=== PATIENT | female | born 1985 | race American Indian/Alaskan Native ===

== ENCOUNTER 2017-01-12 09:44 | Inpatient (IN) | payer MEDICAID ==
--- NOTE | 2017-01-09 13:18 | History and Physical Report ---
History of Present Illness Date of examination: 01/07/17 Date of admission: 01/12/17 Chief complaint: here for c/s History of present illness: Pt presents for primary C/s due to having abdominal cerclage in place. Cerclage will not be removed during the section. All risk, benefits, and alternatives were d/w pt and all questions were addressed and answered. Consents were signed and placed on the chart. EDC Calculations LMP: 05/13/2015 EDC Confirmation: 05/13/2015 Gestational Age: 8 1/7 weeks Past History : 6 # 1 Delivery date: 10/17/2005 Weeks Gestation: 19 Delivery type: Delivery location: [place] Sex: Male Comments: PPROM advanced dilatation # 2 Delivery date: 01/25/2007 Weeks Gestation: 22 Delivery type: Anesthesia type: epidural Delivery location: [place] Sex: Male Comments: cerclage in place PPROM # 3 Delivery date: 05/2010 Weeks Gestation: 8 Delivery type: ectopic Comments: MTX treated right ectopic # 4 Delivery date: 02/20/2011 Weeks Gestation: 26 Delivery type: Delivery location: [facility] Comments: Cerclage placed/progesterone supp IUFD induction done # 5 Delivery date: 10/2012 Weeks Gestation: 19 Delivery location: [facility] Comments: Cerclage placed PPROM unsure possible D&E Past Medical History: Goiter Past Surgical History: umbilical hernia Family History Summary: Daughter () - Has No Family History of Ovarvian Cancer - Please disregard relationships chosen - Entered On: 10/02/2014 Daughter (misty.) - Has No Family History of Diabetes, Hypertension, or Coronary Artery Disease - Please disregard relationships chosen - Entered On: 10/02/2014 Daughter (biol.) - Has No Family History of Colon Cancer - Please disregard relationships chosen - Entered On: 10/02/2014 Daughter (biol.) - Has Family History of Thyroid Disease - Please disregard relationships chosen - Entered On: 10/02/2014 Daughter (biol.) - Has Family History Breast Cancer - Please disregard relationships chosen - Entered On: 10/02/2014 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 of genital herpes: no Partner hx. of genital herpes: no Genetic History Congenital Heart Defect: Mom: no Dad: no Jet Disease: Mom: no Dad: no Thalassemia Mom: no Dad: no Neural Tube Defect Mom: no Dad: no Down's Syndrome Mom: no Dad: no Leo-Sachs Mom: no Dad: no Sickle Cell Disease/Trait Mom: no Dad: no Hemophilia Mom: no Dad: no Muscular Dystrophy Mom: no Dad: no Cystic Fibrosis Mom: no Dad: no Rawlings Chorea Mom: no Dad: no Mental Retardation Mom: no Dad: no Fragile X Mom: no Dad: no Other Genetic/Chromosomal Disorder Mom: no Dad: no Child w/other defect Mom: no Dad: no Enviromental Exposures Xray Exposure: no Medication, drug, or alcohol use since LMP: no Chemical/Other Exposure: no Exposure to Cat Liter: no Active Medications (reviewed today): VITAMINS () Current Allergies (reviewed today): No known allergies Past History Past Medical History: no pertinent history Past Surgical History: other (cervical cerclage times 2; abdominal cerclage times one) 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: denies: abnormal PAP smear Social history: no significant social history, single - Obstetrical History Expected Date of Delivery: 01/18/17 Actual Gestation: 38 Week(s) 5 Day(s) : 6 Para: 0 Number of Living Children: 0 Medications and Allergies Allergies Allergy/AdvReac Type Severity Reaction Status Date / Time No Known Allergies Allergy Unverified 11/30/14 11:40 Home Medications Medication Instructions Recorded Confirmed Last Taken Type Pnv95/Ferrous Fumarate/FA 1 each PO QDAY 11/30/14 11/30/14 11/29/14 History [ Vitamins] Ferrous Gluconate [Fergon] 325 mg PO TID #90 tablet 12/01/14 Unknown Rx Methylergonovine [Methergine] 0.2 mg PO Q8HR #3 tablet 12/01/14 Unknown Rx Review of Systems All systems: negative - Physical Exam Breasts: Positive: deferred Cardiovascular: Normal S1, Normal S2 Lungs: Positive: Clear to auscultation, Normal air movement Abdomen: Positive: normal appearance, soft. Negative: distention, tenderness, guarding Genitourinary (Female): Positive: other (deferrred) Extremities: Positive: normal. Negative: tenderness, edema Deep Tendon Reflex Grade: Normal +2 - Obstetrical FHR: auscultation normal Results All other labs normal. Assessment and Plan - Patient Problems (1) H/O incompetent cervix, currently Status: Acute Plan to address problem: -adominal cerclage in place -proceed with primary c/s -consents signed and placed on the chart. (2) with poor reproductive history in third trimester Status: Acute
[~2017-01-12 09:44] MED LIST: ANCEF/STERILE WATER 2 GM/20 ML 2 GM/20 ML SYRINGE IV NR; BICITRA PO SCH; LACTATED RINGERS 1,000 ML IV SCH; PEPCID IV SCH; REGLAN IV SCH
--- NOTE | 2017-01-12 10:46 | Anesthesia Day of Surgery ---
Anesthesia Day of Surgery - Day of Surgery Patient Examined: Yes Patient H&P Reviewed: Yes Patient is NPO: Yes
--- NOTE | 2017-01-12 10:46 | Anesthesia Consultation ---
Anesthesia Consult and Med Hx Date of service: 01/12/17 - Airway Anesthetic Teeth Evaluation: Good ROM Head & Neck: Adequate Mental/Hyoid Distance: Adequate Mallampati Class: Class II Intubation Access Assessment: Probably Good - Pre-Operative Health Status ASA Pre-Surgery Classification: ASA2 Proposed Anesthetic Plan: Epidural, Spinal - Pulmonary Hx Asthma: No COPD: No Hx Pneumonia: No - Cardiovascular System Hx Hypertension: No - Central Nervous System Hx Seizures: No Hx Psychiatric Problems: No - Endocrine Hx Renal Disease: No Hx End Stage Renal Disease: No Hx Hypothyroidism: No Hx Hyperthyroidism: No - Hematic Hx Anemia: No Hx Sickle Cell Disease: No - Other Systems Hx Alcohol Use: No - Additional Comments Anesthesia Medical History Comments: cerclage is in place
[2017-01-12 10:56] LABS: Basophils % (Auto) 0.3 % (0.0-1.8); Eosinophils % (Auto) 1.4 % (0.0-4.3); Hematocrit 39.2 % (30.3-42.9); Hemoglobin 12.4 gm/dl (10.1-14.3); Mean Corpuscular HGB Conc 32 % (30-34); Mean Corpuscular Hemoglobin 27 pg (28-32); Mean Corpuscular Volume 86 fl (79-97); Platelet Count 253 K/mm3 (140-440); Red Blood Count 4.56 M/mm3 (3.65-5.03); Red Cell Distribution Width 15.4 % (13.2-15.2); White Blood Count 7.3 K/mm3 (4.5-11.0)
[2017-01-12] MEDS ORDERED: NARCAN 0.4 MG/1 ML IV PRN ×2 (11:00→13:18)
[2017-01-12] MEDS ORDERED: BENADRYL IV PRN ×2 (11:00→11:31)
[2017-01-12] MEDS ORDERED: DILAUDID IV PRN (11:00)
[2017-01-12] MEDS ORDERED: TORADOL IV PRN (11:00)
[2017-01-12] MEDS ORDERED: SODIUM CHLORIDE FLUSH SYRINGE 10 ML IV NR (11:00)
[2017-01-12] MEDS ORDERED: PHENERGAN PO PRN (11:15)
[2017-01-12] MEDS ORDERED: ZOFRAN IV PRN (11:15)
[2017-01-12] MEDS ORDERED: PHENERGAN PR PRN (11:15)
[2017-01-12] MEDS ORDERED: MORPHINE IV PRN ×2 (11:31)
[2017-01-12] MEDS ORDERED: MORPHINE ONE (11:43)
[2017-01-12] MEDS ORDERED: ZOFRAN ONE (12:48)
[2017-01-12] MEDS ORDERED: NEO SYNEPHRINE/NS Syringe(OR USE) IV ONE (13:00)
[2017-01-12 13:02] LABS: ISTAT Base Excess -3; ISTAT HCO3 24.2; ISTAT PCO2 57.3 (35-45); ISTAT PH 7.234 (7.35-7.45); ISTAT PO2 13 (80-105); ISTAT SO2 11; ISTAT TCO2 26
[2017-01-12 13:02] LABS: ISTAT Base Excess -3; ISTAT HCO3 24.3; ISTAT PO2 17 (80-105); ISTAT SO2 19; ISTAT TCO2 26
--- NOTE | 2017-01-12 13:06 | Operative Report ---
Operative Report Operative Report: Date of procedure: 01/12/2017 Pre-operative diagnosis: 39 weeks gestation Abdominal cerclage Post-operative diagnosis: Same Procedure name(s): Primary low vertical section Surgeon: Dr. Guzman Evaluation Advisor: Ms. Rosey Rod Anesthesia: Epidural EBL: 800 mL Urine output: 100 mL of clear urine at the end of the procedure Fluids: 1500 mL Findings: Liveborn female weight 7 lbs. 12 oz. Apgars of 4 and 8 at one and 5 minutes. Abdominal cerclage stitch noted and intact minimal bleeding noted around the serosa which was repaired with 3-0 Vicryl. Less than 1 cm fundal fibroid anterior Normal fallopian tubes and ovaries bilaterally Indications: Patient presents for primary section due to having placement of abdominal cerclage and wanting to maintain cerclage in place. All risks benefits and alternatives were discussed with the patient. Consents were signed and placed on the chart. Procedure: Patient was taking to the operating room. Patient was then prepped and draped in sterile fashion after anesthesia was found to be adequate. A low transverse skin incision was made with the scalpel and carried down to the underlying layer of fascia with the Bovie. The fascia was then incised in the midline and this incision was extended bilaterally with the Bovie. The superior aspect of the fascia was grasped with Balaji clamps tented upward and dissected off of the anterior rectus muscles with the scalpel. In similar fashion the inferior aspect of the fascia was grasped with Balaji clamps tented upward and dissected off of the anterior rectus muscles. The rectus muscles were then bluntly divided in the midline. The peritoneum was identified and entered into sharply. A low vertical uterine incision was made extending superiorly with the scalpel and blunt dissection. Artificial rupture of membranes was performed yielding clear amniotic fluid. The infant's head was then delivered atraumatically. The anterior shoulder and rest of delivered without difficulty. Nuchal cord and shoulder cord were noted and easily reduced. The umbilical cord was clamped x2. The cord was cut. The infant was then placed in sterile bassinet. The cord blood was collected. A cord gas was also collected. The placenta was manually extracted in its entirety. The uterus was exteriorized and cleared of all clots and debris. The uterine incision was closed using 0 Vicryl in a running locking fashion. Several [id number] sutures were used along the uterine incision to secure excellent hemostasis. Bleeding was noted of the serosa covering the abdominal cerclage stitch. This area was suture ligated with 0 and 3-0 Vicryl. Excellent hemostasis was noted. The posterior cul-de-sac was copiously irrigated. The uterus was returned to the abdomen. The gutters were also irrigated. The anterior rectus muscles were reapproximated using 3-0 Vicryl. The anterior rectus fascia was reapproximated using 0 Vicryl in a running fashion. The subcuticular fat was reapproximated using 2-0 Vicryl in a running fashion. The skin was reapproximated with 4-0 Monocryl with a substitute stitch. The patient tolerated the procedure well. Sponge lap and needle counts were all correct x3. Patient was taken to the recovery room awake and in stable condition.
[2017-01-12] MEDS ORDERED: TUCKS PAD TP PRN (13:18)
[2017-01-12] MEDS ORDERED: LANSINOH TP PRN (13:18)
--- NOTE | 2017-01-12 15:02 | Post Anesthesia Evaluation ---
- Post Anesthesia Evaluation Patient Participated: Yes Airway Patent: Yes Stable Respiratory Function: Yes Nausea/Vomiting: No Temp > 96.8F: Yes Pain Manageable: Yes Adequeate Hydration: Yes Anesthesia Complications: No Block Receding Appropriately: Yes Patient on Ventilator: No
[2017-01-12] MEDS ORDERED: CYTOTEC ONE (15:13)
[2017-01-12] MEDS ORDERED: CYTOTEC PR ONE (16:08)
[2017-01-12] MEDS ORDERED: PITOCin/NS 20 UNIT/1000ML DRIP 20,000 MILLIUNITS/1,000 ML BAG IV ONE (19:17)
[2017-01-12] MEDS: ANCEF/NS 1 GM/50 ML 1 GM/50 ML BAG IV SCH (19:26)
[2017-01-12] MEDS: PITOCin/NS 20 UNIT/1000ML DRIP 20 UNITS/1,000 ML BAG IV SCH (19:26)
[2017-01-12] MEDS: METHERGINE PO SCH (20:04)
--- NOTE | 2017-01-12 20:19 | Progress Note ---
Assessment and Plan - Patient Problems (1) bleeding Onset Date: ~01/12/17 Current Visit: Yes Status: Acute Qualifiers: hemorrhage type: unspecified Qualified Code(s): O72.1 - Other immediate hemorrhage Plan to address problem: Went to PP unit to see pt after speaking with RN Had her chg the pad and I waited approx 30 min to see what her bleeding was doing. With massage FF bleeding is moderate. Pad changed there is a small trickle noted. notified of my findins. PO Methergine started. Will reassess on her arrival. Subjective - Subjective Date of service: 01/12/17 (called by RN to evaluate PP bleeding) Patient reports: pain well controlled [place]: doing well Objective - Vital Signs Latest vital signs: Vital Signs Temp Pulse Resp BP Pulse Ox 01/12/17 16:15 98.2 F 102 H 18 149/72 01/12/17 15:00 95 H 18 143/71 01/12/17 14:35 98 F 81 18 129/69 01/12/17 13:57 97.6 F 01/12/17 13:51 84 12 124/71 100 01/12/17 13:40 97.6 F 81 10 L 120/73 98 01/12/17 13:30 82 16 128/71 100 01/12/17 13:20 87 16 129/67 98 01/12/17 13:10 86 16 126/66 98 01/12/17 13:00 91 H 15 124/60 97 01/12/17 12:56 97.9 F 01/12/17 12:55 99 H 97 01/12/17 11:30 91 H 98 01/12/17 11:25 94 H 98 01/12/17 11:20 93 H 99 01/12/17 11:15 93 H 99 01/12/17 11:10 96 H 99 01/12/17 11:05 97 H 98 01/12/17 11:00 88 99 01/12/17 10:57 98.8 F 80 18 127/74 01/12/17 10:54 102 H 98 01/12/17 10:49 94 H 127/74 98 01/12/17 10:44 102 H 96 01/12/17 10:39 100 H 98 01/12/17 10:34 105 H 90 01/12/17 10:33 107 H 98 Intake and Output 01/12/17 01/12/17 01/12/17 06:59 14:59 22:59 Intake Total 1900 360 Output Total 200 600 Balance 1700 -240 Intake: IV 1900 Oral 360 Output: Urine 200 600 Indwelling Catheter 600 Other: Total, Intake Amount 360 Total, Output Amount 600 Weight 222 lb Patient Weight 01/13/17 06:59 Weight 222 lb - Exam Breasts: Present: normal Cardiovascular: Present: Regular rate Lungs: Present: Normal air movement Abdomen: Present: normal appearance, soft Uterus: Present: normal, fundal height below umbilicus (FF with massage ), other (bleeding is a steady trickle; 2nd bag of pitocin hung; made aware of concerns) Extremities: Present: edema Incision: Present: dry, intact, dressed - Labs Labs: Abnormal lab results 01/12/17 01/12/17 01/12/17 Range/Units 10:43 12:53 12:57 MCH 27 L (28-32) pg RDW 15.4 H (13.2-15.2) % [place] % (Auto) 10.5 H (0.0-7.3) % Seg Neutrophils % 70.3 H (40.0-70.0) % POC ABG pH 7.270 L 7.234 L (7.35-7.45) POC ABG pCO2 53.0 H 57.3 H (35-45) POC ABG pO2 17 L 13 L (80-105)
--- NOTE | 2017-01-12 21:01 | Event Note ---
Date: 01/12/17 (pt re-eval with ) Uterus is soft FF below the umbilicus slightly to the right. evacuated several small clots. Bleeding is much improved on this pad that was placed @ 1999. Will continue POC. RN made aware of our assessment. Please see 's note.
--- NOTE | 2017-01-12 21:10 | Progress Note ---
Assessment and Plan - Patient Problems (1) H/O incompetent cervix, currently Current Visit: Yes Status: Acute (2) with poor reproductive history in third trimester Current Visit: Yes Status: Acute (3) bleeding Onset Date: ~01/12/17 Current Visit: Yes Status: Acute Qualifiers: hemorrhage type: unspecified Qualified Code(s): O72.1 - Other immediate hemorrhage Plan to address problem: -monitor closely will do vitals q 2 hours -pt is stable and bleeding is what is to be expected post op -all questions were addressed and answered -RN made aware of plan of care -cont methergine po at this time. Subjective - Subjective Date of service: 01/12/17 Principal diagnosis: POD #0 s/p low vertical c/s now with vaginal bleeding Interval history: Called by program manager rn due to pt having what was noted to be moderate vaginal bleeding. Pt has gotten cytotec times one, methergine times one and pitocin 20 units hanging now which will be a total of 40 units. When I spoke with pt current nurse she stated the bleeding was normal at this time and seemed improved from what that was given. I spoke with Ms. Rod who was also at bedside and states bleeding is improved and current pad has been on for the last hour and has small amount of blood present. Vaginal exam did produce two clots but no constant bleeding or tricking of blood noted on exam at this time. With movement to change padding, again no active bleeding noted one exam. Vitals are stable and UOP is more than adequate at this time. Pt pain is well controlled.No headaches, blurry vision, on palpitations at this time. Patient reports: pain well controlled : doing well Objective - Vital Signs Latest vital signs: Vital Signs Temp Pulse Resp BP Pulse Ox 01/12/17 20:30 98.6 F 81 16 120/70 01/12/17 16:15 98.2 F 102 H 18 149/72 01/12/17 15:00 95 H 18 143/71 01/12/17 14:35 98 F 81 18 129/69 01/12/17 13:57 97.6 F 01/12/17 13:51 84 12 124/71 100 01/12/17 13:40 97.6 F 81 10 L 120/73 98 01/12/17 13:30 82 16 128/71 100 01/12/17 13:20 87 16 129/67 98 01/12/17 13:10 86 16 126/66 98 01/12/17 13:00 91 H 15 124/60 97 01/12/17 12:56 97.9 F 01/12/17 12:55 99 H 97 01/12/17 11:30 91 H 98 01/12/17 11:25 94 H 98 01/12/17 11:20 93 H 99 01/12/17 11:15 93 H 99 01/12/17 11:10 96 H 99 01/12/17 11:05 97 H 98 01/12/17 11:00 88 99 01/12/17 10:57 98.8 F 80 18 127/74 01/12/17 10:54 102 H 98 01/12/17 10:49 94 H 127/74 98 01/12/17 10:44 102 H 96 01/12/17 10:39 100 H 98 01/12/17 10:34 105 H 90 01/12/17 10:33 107 H 98 Intake and Output 01/12/17 01/12/17 01/12/17 06:59 14:59 22:59 Intake Total 1900 910 Output Total 200 600 Balance 1700 310 Intake: IV 1900 Oral 610 Intake, Free Water 300 Output: Urine 200 600 Indwelling Catheter 600 Other: Total, Intake Amount 250 Total, Output Amount 600 Weight 100.698 kg Patient Weight 01/13/17 06:59 Weight 100.698 kg - Exam Abdomen: Present: normal appearance, soft. Absent: distention, tenderness, guarding Uterus: Present: normal, firm, fundal height below umbilicus. Absent: bogginess , tenderness Extremities: Present: normal. Absent: tenderness, edema Deep Tendon Reflex Grade: Normal +2 Incision: Present: normal, dry, intact, dressed - Labs Labs: Abnormal lab results 01/12/17 01/12/17 01/12/17 Range/Units 10:43 12:53 12:57 MCH 27 L (28-32) pg RDW 15.4 H (13.2-15.2) % [place] % (Auto) 10.5 H (0.0-7.3) % Seg Neutrophils % 70.3 H (40.0-70.0) % POC ABG pH 7.270 L 7.234 L (7.35-7.45) POC ABG pCO2 53.0 H 57.3 H (35-45) POC ABG pO2 17 L 13 L (80-105)
[2017-01-13 00:50] LABS: Hematocrit 24.6 % (30.3-42.9)
[2017-01-13] MEDS ORDERED: BENADRYL PO ONE (01:20)
[2017-01-13] MEDS: PITOCin/NS 20 UNIT/1000ML DRIP 20 UNITS/1,000 ML BAG IV SCH (03:08)
[2017-01-13] MEDS: METHERGINE PO SCH ×3 (03:08→18:13)
[2017-01-13] MEDS: ANCEF/NS 1 GM/50 ML 1 GM/50 ML BAG IV SCH (03:08)
[2017-01-13] MEDS: NORCO 5/325 PO PRN ×3 (05:22→22:41)
[2017-01-13] MEDS ORDERED: BOOSTRIX IM ONE (06:19)
--- NOTE | 2017-01-13 07:22 | Progress Note ---
Assessment and Plan Patient resting without complaints; Tera petit, H&H 24.6, VSSAF. Encouraged increased activity as tolerated today. Call for help before getting out of bed the first time. Continue with postop pathway. - Patient Problems (1) delivery delivered Current Visit: Yes Status: Acute Subjective - Subjective Date of service: 01/13/17 Principal diagnosis: POD #1 s/p low vertical c/s Patient reports: appetite normal, voiding normally, pain well controlled, ambulating normally, no dizzy ambulation, no flatus, no nauseated [place]: doing well, bottle feeding Objective - Vital Signs Latest vital signs: Vital Signs Temp Pulse Resp BP Pulse Ox 01/13/17 06:00 98.6 F 71 16 111/71 01/13/17 04:00 98.6 F 80 16 112/70 01/13/17 02:10 98.8 F 71 16 119/59 01/13/17 00:00 99.6 F 78 16 102/68 01/12/17 22:00 98.6 F 81 16 122/79 01/12/17 20:30 98.6 F 81 16 120/70 01/12/17 16:15 98.2 F 102 H 18 149/72 01/12/17 15:00 95 H 18 143/71 01/12/17 14:35 98 F 81 18 129/69 01/12/17 13:57 97.6 F 01/12/17 13:51 84 12 124/71 100 01/12/17 13:40 97.6 F 81 10 L 120/73 98 01/12/17 13:30 82 16 128/71 100 01/12/17 13:20 87 16 129/67 98 01/12/17 13:10 86 16 126/66 98 01/12/17 13:00 91 H 15 124/60 97 01/12/17 12:56 97.9 F 01/12/17 12:55 99 H 97 01/12/17 11:30 91 H 98 01/12/17 11:25 94 H 98 01/12/17 11:20 93 H 99 01/12/17 11:15 93 H 99 01/12/17 11:10 96 H 99 01/12/17 11:05 97 H 98 01/12/17 11:00 88 99 01/12/17 10:57 98.8 F 80 18 127/74 01/12/17 10:54 102 H 98 01/12/17 10:49 94 H 127/74 98 01/12/17 10:44 102 H 96 01/12/17 10:39 100 H 98 01/12/17 10:34 105 H 90 01/12/17 10:33 107 H 98 Intake and Output 01/12/17 01/13/17 01/13/17 22:59 06:59 14:59 Intake Total 1710 1250 Output Total 600 2400 Balance 1110 -1150 Intake: IV 550 950 ANCEF/NS 1 GM/50 ML 1 gm 100 In 50 ml @ 100 mls/hr IV Q8H JOYCE Rx#:[id number] PITOCin/NS 20 UNIT/1000ML 325 DRIP 20 units In 1,000 ml @ As Directed IV TITR JOYCE Rx#:[id number] PITOCin/NS 20 UNIT/1000ML 125 950 DRIP 20,000 milliunits In 1,000 ml As IV .STK- MED ONE Rx#:[id number] Oral 860 Intake, Free Water 300 300 Output: Urine 600 2400 Indwelling Catheter 600 2400 Other: Total, Intake Amount 250 Total, Output Amount 600 600 - Exam Breasts: Present: normal Cardiovascular: Present: Regular rate Lungs: Present: Clear to auscultation, Normal air movement Abdomen: Present: normal appearance, soft Vulva: both: normal Uterus: Present: normal, firm, fundal height at umbilicus Extremities: Present: normal Incision: Present: normal, dry, intact - Labs Labs: Abnormal lab results 01/12/17 01/12/17 01/12/17 Range/Units 10:43 12:53 12:57 Hgb (10.1-14.3) gm/dl Hct (30.3-42.9) % MCH 27 L (28-32) pg RDW 15.4 H (13.2-15.2) % [place] % (Auto) 10.5 H (0.0-7.3) % Seg Neutrophils % 70.3 H (40.0-70.0) % POC ABG pH 7.270 L 7.234 L (7.35-7.45) POC ABG pCO2 53.0 H 57.3 H (35-45) POC ABG pO2 17 L 13 L (80-105) 01/13/17 Range/Units 00:28 Hgb 8.0 L D (10.1-14.3) gm/dl Hct 24.6 L D (30.3-42.9) % MCH (28-32) pg RDW (13.2-15.2) % [place] % (Auto) (0.0-7.3) % Seg Neutrophils % (40.0-70.0) % POC ABG pH (7.35-7.45) POC ABG pCO2 (35-45) POC ABG pO2 (80-105)
--- NOTE | 2017-01-13 08:29 | Progress Note ---
Subjective Date of service: 01/13/17 Principal diagnosis: POD #1 s/p low vertical c/s Interval history: 1st POD after Patient is in the bed, comfortable. Pain is well controlled with pain meds. Ambulated well. No residual neurological deficit. Pruritus is mostly controlled with benadryl. No anesthesia complications Objective - Constitutional Vitals: Vital Signs - 12hr 01/12/17 01/12/17 01/13/17 20:30 22:00 00:00 Temperature 98.6 F 98.6 F 99.6 F Pulse Rate 81 81 78 Respiratory 16 16 16 Rate Blood Pressure 120/70 122/79 102/68 01/13/17 01/13/17 01/13/17 02:10 04:00 06:00 Temperature 98.8 F 98.6 F 98.6 F Pulse Rate 71 80 71 Respiratory 16 16 16 Rate Blood Pressure 119/59 112/70 111/71 - Labs CBC & Chem 7: 01/13/17 00:28 Labs: Abnormal lab results 01/12/17 01/12/17 01/12/17 Range/Units 10:43 12:53 12:57 Hgb (10.1-14.3) gm/dl Hct (30.3-42.9) % MCH 27 L (28-32) pg RDW 15.4 H (13.2-15.2) % [place] % (Auto) 10.5 H (0.0-7.3) % Seg Neutrophils % 70.3 H (40.0-70.0) % POC ABG pH 7.270 L 7.234 L (7.35-7.45) POC ABG pCO2 53.0 H 57.3 H (35-45) POC ABG pO2 17 L 13 L (80-105) 01/13/17 Range/Units 00:28 Hgb 8.0 L D (10.1-14.3) gm/dl Hct 24.6 L D (30.3-42.9) % MCH (28-32) pg RDW (13.2-15.2) % [place] % (Auto) (0.0-7.3) % Seg Neutrophils % (40.0-70.0) % POC ABG pH (7.35-7.45) POC ABG pCO2 (35-45) POC ABG pO2 (80-105)
[2017-01-13] MEDS: MOTRIN PO PRN ×3 (08:41→22:41)
[2017-01-13] MEDS ORDERED: BENADRYL PO PRN (09:16)
[2017-01-13] MEDS: FEOSOL PO SCH ×2 (09:47→22:35)
[2017-01-13] MEDS: COLACE PO SCH ×2 (09:47→22:35)
[2017-01-13] MEDS: MYLICON PO PRN ×2 (16:38→22:41)
--- NOTE | 2017-01-14 06:26 | Discharge Summary ---
Providers - Providers Date of Admission: 01/12/17 09:44 Date of discharge: 01/14/17 (pt requests d/c today) Attending physician: JOSE CRUZ MORENO Primary care physician: JOSE CRUZ MORENO Hospitalization Reason for admission: section Delivery: Procedure: primary low transverse Episiotomy: none Laceration: none Incision: normal, dry, intact Other procedures: none complications: none Discharge diagnosis: IUP at term delivered [place] baby: female Hospital course: uncomplicated section Pt w/o complaint VSS FF below umb Lochia scant Incision D&I H&H 01/22 drop r/t blood loss Pt is asymptomatic Doing well s/p c/s P: d/c today with instructions RX provided. RTO 1 week Condition at discharge: Good Disposition: DC-01 TO HOME OR SELFCARE - Discharge Diagnoses (1) bleeding Status: Acute Qualifiers: hemorrhage type: unspecified Qualified Code(s): O72.1 - Other immediate hemorrhage Comment: Lochia is scant No s/sx of anemia RX po iron @ d/c (2) delivery delivered Status: Acute Comment: rto 1 week postop care Plan - Discharge Medications Prescriptions: Docusate Sodium [Colace] 100 mg PO BID PRN #60 capsule PRN Reason: Constipation Ferrous Sulfate [Feosol 325 MG tab] 325 mg PO QDAY #30 tablet Ibuprofen [Motrin 800 MG tab] 800 mg PO Q8HR PRN #30 tablet PRN Reason: Pain oxyCODONE /ACETAMINOPHEN [Percocet 5/325] 1 tab PO Q4HR #30 tab - Provider Discharge Summary Activity: routine, no sex for 6 weeks, no heavy lifting 4 weeks, no strenuous exercise Diet: routine Instructions: routine Additional instructions: [] Smoking cessation referral if applicable(refer to patient education folder for contact #) [] Refer to [facility] Booklet Call your doctor immediately for: * Fever > 100.5 * Heavy vaginal bleeding ( >1 pad per hour) * Severe persistent headache * Shortness of breath * Reddened, hot, painful area to leg or breast * Drainage or odor from incision. * Keep incision clean and dry at all times and follow doctor's instructions regarding bathing/showering - Follow up plan Follow up: JOSE CRUZ MORENO MD [Primary Care Provider] - 7 Days (Congratulations! Please call [phone] to schedule your postoperative visit in 1 week. Take medications as prescribed. Call with concerns. )
[2017-01-14] MEDS: COLACE PO SCH (09:53)
[2017-01-14] MEDS: FEOSOL PO SCH (09:53)
[2017-01-14 15:46] VITALS: BP 133/81
== END 2017-01-14 13:29 | disposition home or self-care (01) | DRG 765 ==
LOC: APU 09:44 → OB 14:51
PROVIDERS: ADMIT Obstetrics & Gynecology; ATTEND Obstetrics & Gynecology
PROC: 10D00Z1 Extraction of Products of Conception, Low, Open Approach (ICD-10-PCS; principal; 2017-01-12)
PROC: 4A033R1 Measurement of Arterial Saturation, Peripheral, Percutaneous Approach (ICD-10-PCS; 2017-01-12)
DX: O34.33 Maternal care for cervical incompetence, third trimester (principal); O72.1 Other immediate postpartum hemorrhage; Z3A.39 39 weeks gestation of pregnancy; Z37.0 Single live birth
CPT/HCPCS: 36415; 82803; 85014; 85018; 85025; 86592; 86850; 86900; 86901; 88307; 90471; 90715; J0690; J2270; J2370; J2405; J2590; J2765; J7120